=== PATIENT | male | born 1945 | race Caucasian/White ===

== ENCOUNTER 2019-04-12 20:45 | Observation (INO) | payer OTHER, MEDICARE ==
[2019-04-12] MEDS ORDERED: NS 500 ML IV ONE (21:42)
[2019-04-12 21:53] LABS: PLATELET COUNT 215 10^3/uL (150-400)
[2019-04-12 22:15] LABS: INR 1.03 (0.83-1.16); PROTIME(PATIENT) 13.1 SEC (12.0-15.0)
[2019-04-12] MEDS ORDERED: PANTOPRAZOLE SODIUM 40 MG VIAL IVP ONE (22:52)
--- NOTE | 2019-04-12 22:58 | EDPHY ---
H & P Time Seen by Provider: 04/12/19 21:44 HPI/ROS: HPI Rectal bleeding. 74-year-old male by private vehicle with his . This patient reports that he had some blood that he noticed on the toilet paper earlier today when he had a bowel movement. He when out to dinner. Had no issues with dinner but felt the urge to defecate when he got home. When he did this he had very dark stool of mixed with a significant amount of blood in the toilet. He denies feeling lightheaded. He has no prior history of rectal bleeding. He is not on any anticoagulant or antiplatelet agents. No abdominal pain. No nausea or vomiting. No rectal pain. ROS: Constitutional: No fever, no chills. No weakness. Eyes: No discharge. No changes in vision. ENT: No sore throat. No nasal congestion or rhinorrhea. Respiratory: No cough. No shortness of breath. Cardiac: No chest pain, no palpitations. Gastrointestinal: No abdominal pain, no vomiting, no diarrhea. As above. Genitourinary: No hematuria. No dysuria or increased frequency with urination. Musculoskeletal: No back pain. No neck pain. No myalgias or arthralgias. Skin: No rashes. Neurological: No headache. No focal weakness or altered sensation. Past medical history: Trigeminal neuralgia, GERD, BPH. Social history: Nonsmoker. No alcohol. Here with his . Physical Exam: General Appearance: Alert, no distress. This patient is responding to questions appropriately and in full sentences. This patient appears well- hydrated and well-nourished. Eyes: Pupils equal and round no pallor or injection. No lid edema, erythema or injection. Respiratory: There are no retractions, lungs are clear to auscultation with good air movement bilaterally. Cardiovascular: Regular rate and rhythm. No murmur. Gastrointestinal: Abdomen is soft, distended but this is his normal body habitus, nontender on palpation throughout, no masses, bowel sounds normal. No focal tenderness at McBurney's point. No Hughes sign. Rectal exam: Small external hemorrhoid. Gross blood mixed with a melenic stool. Neurological: Motor sensory function is grossly intact. Cranial nerves are normal. Gait is normal. Skin: Warm and dry, no rashes. Musculoskeletal: Neck is supple and nontender. Extremities are symmetrical. All joints range without pain or impingement. Psychiatric: No agitation. No depression. Database: EKG: Imaging: Procedures: Emergency department course: Triage vital signs reviewed. He is moderately hypertensive. Vital signs are otherwise normal. IV placed x2. He was placed on a monitor. He was started on IV normal saline with 500 cc to 1 L to be given over the next hour. 10:55 p.m., patient re-evaluated, resting comfortably at this time. I discussed the results of his blood work with him and his . Explained the differential diagnosis of rectal bleeding. Explained that we would admit him to the hospitalist service for further evaluation and Gastroenterology consultation. He was started on 80 mg of IV Protonix. Hospitalist paged for admission. 11:15 p.m., care was discussed with on-call hospitalist. Patient accepted for admission to the hospitalist service. Gastroenterology consultation deferred to hospitalist service. Patient admitted to the hospitalist service in stable condition. Differential Diagnosis: The differential diagnosis on this patient includes but is not limited to internal hemorrhoids, colonic polyps, diverticulosis, upper gastrointestinal bleeding source. This represents a partial list of diagnoses considered. These considerations are based on history, physical exam, past history, reassessment and diagnostic testing. Smoking Status: Never smoked Constitutional: Initial Vital Signs Temperature (C) 37.1 C 04/12/19 20:46 Heart Rate 72 04/12/19 20:46 Respiratory Rate 17 04/12/19 20:46 Blood Pressure 168/100 H 04/12/19 20:46 O2 Sat (%) 96 04/12/19 20:46 O2 Delivery Mode Room Air Allergies/Adverse Reactions: poliomyelitis vaccine,killed [Poliomyelitis Vac,Killed] Allergy (Unknown, Verified 04/12/19 20:47) Sulfa (Sulfonamide Antibiotics) [Sulfa(Sulfonamide Antibiotics)] Allergy ( Unknown, Verified 04/12/19 20:47) poliomyelitis vaccine, live oral [poliomyelitis vaccine,live] Allergy (Verified 04/12/19 20:47) mendelamine Allergy (Unknown, Uncoded 04/12/19 20:47) Home Medications: Medication Instructions Recorded Flomax 11/14/12 Lipitor 11/14/12 Lisinopril/Hctz 11/14/12 Prevacid 11/14/12 Fluticasone Hfa 110 Mcg [Flovent 2 puffs IH BID 07/13/13 Hfa] Medical Decision Making - Data Points Laboratory Results: Laboratory Results 04/12/19 21:15 04/12/19 21:15 04/12/19 04/12/19 04/12/19 22:47 21:15 21:15 WBC RBC Hgb Hct MCV MCH MCHC RDW Plt Count MPV Neut % (Auto) Lymph % (Auto) [place] % (Auto) Eos % (Auto) Baso % (Auto) Nucleat RBC Rel Count Absolute Neuts (auto) Absolute Lymphs (auto) Absolute Monos (auto) Absolute Eos (auto) Absolute Basos (auto) Absolute Nucleated RBC Immature Gran % Immature Gran # PT INR APTT Sodium 138 mEq/L mEq/L (135-145) Potassium 4.2 mEq/L mEq/L (3.5-5.2) Chloride 104 mEq/L mEq/L (97-110) Carbon Dioxide 26 mEq/l mEq/l (22-31) Anion Gap 8 mEq/L mEq/L (6-14) BUN 9 mg/dL mg/dL (7-23) Creatinine 0.8 mg/dL mg/dL (0.7-1.3) Estimated GFR > 60 Glucose 94 mg/dL mg/dL (70-100) Calcium 9.7 mg/dL mg/dL (8.5-10.4) Total Bilirubin 0.4 mg/dL mg/dL (0.1-1.4) Conjugated Bilirubin 0.1 mg/dL mg/dL (0.0-0.5) Unconjugated Bilirubin 0.3 mg/dL mg/dL (0.0-1.1) AST 30 IU/L IU/L (17-59) ALT 31 IU/L IU/L (21-72) Alkaline Phosphatase 68 IU/L IU/L (38-126) Total Protein 6.5 g/dL g/dL (6.3-8.2) Albumin 4.0 g/dL g/dL (3.5-5.0) Stool Occult Bld Scrn POSITIVE H (NEGATIVE) Patient ABO/Rh O POSITIVE Antibody Screen NEGATIVE 04/12/19 04/12/19 21:15 21:15 WBC 8.03 10^3/uL 10^3/uL (3.80-9.50) RBC 4.91 10^6/uL 10^6/uL (4.40-6.38) Hgb 15.4 g/dL g/dL (13.7-17.5) Hct 46.7 % % (40.0-51.0) MCV 95.1 fL fL (81.5-99.8) MCH 31.4 pg pg (27.9-34.1) MCHC 33.0 g/dL g/dL (32.4-36.7) RDW 13.6 % % (11.5-15.2) Plt Count 215 10^3/uL 10^3/uL (150-400) MPV 11.7 fL fL (8.7-11.7) Neut % (Auto) 55.6 % % (39.3-74.2) Lymph % (Auto) 32.4 % % (15.0-45.0) [place] % (Auto) 7.3 % % (4.5-13.0) Eos % (Auto) 4.1 % % (0.6-7.6) Baso % (Auto) 0.4 % % (0.3-1.7) Nucleat RBC Rel Count 0.0 % % (0.0-0.2) Absolute Neuts (auto) 4.46 10^3/uL 10^3/uL (1.70-6.50) Absolute Lymphs (auto) 2.60 10^3/uL 10^3/uL (1.00-3.00) Absolute Monos (auto) 0.59 10^3/uL 10^3/uL (0.30-0.80) Absolute Eos (auto) 0.33 10^3/uL 10^3/uL (0.03-0.40) Absolute Basos (auto) 0.03 10^3/uL 10^3/uL (0.02-0.10) Absolute Nucleated RBC 0.00 10^3/uL 10^3/uL (0-0.01) Immature Gran % 0.2 % % (0.0-1.1) Immature Gran # 0.02 10^3/uL 10^3/uL (0.00-0.10) PT 13.1 SEC SEC (12.0-15.0) INR 1.03 (0.83-1.16) APTT 31.6 SEC SEC (23.0-38.0) Sodium Potassium Chloride Carbon Dioxide Anion Gap BUN Creatinine Estimated GFR Glucose Calcium Total Bilirubin Conjugated Bilirubin Unconjugated Bilirubin AST ALT Alkaline Phosphatase Total Protein Albumin Stool Occult Bld Scrn Patient ABO/Rh Antibody Screen Medications Given: Discontinued Medications Sodium Chloride (Ns) 500 mls @ 0 mls/hr IV EDNOW ONE; Wide Open PRN Reason: Protocol Stop: 04/12/19 21:43 Last Admin: 04/12/19 22:06 Dose: 500 mls Pantoprazole Sodium (Protonix) 80 mg IVP EDNOW ONE Stop: 04/12/19 22:53 Last Admin: 04/12/19 23:01 Dose: 80 mg Departure - Departure Disposition: [facility] Inpatient Acute Clinical Impression: Rectal bleeding Referrals: Unknown,Unknown [Primary Care Provider] - As per Instructions
[2019-04-13] MEDS ORDERED: ONDANSETRON 4 MG/2 ML VIAL IVP PRN (02:01)
[2019-04-13] MEDS ORDERED: ONDANSETRON DISINTEGRATING 4 MG TAB PO PRN (02:01)
[2019-04-13] MEDS ORDERED: ACETAMINOPHEN 325 MG TAB PO PRN (02:01)
[2019-04-13] MEDS ORDERED: NS 1,000 ML IV SCH (02:15)
[2019-04-13] MEDS ORDERED: 1/2 NS 1,000 ML IV SCH (04:30)
[2019-04-13] MEDS ORDERED: PANTOPRAZOLE SODIUM 40 MG VIAL IVP SCH (04:52)
[2019-04-13] MEDS: PANTOPRAZOLE SODIUM 40 MG VIAL IVP SCH ×4 (06:01→23:01)
--- NOTE | 2019-04-13 06:15 | GHP ---
[f rep st] HISTORY AND PHYSICAL DATE OF ADMISSION: 04/12/2019 SOURCE: Patient provides history, appears reliable. EMR was reviewed and case discussed with ED pro vider. CHIEF COMPLAINT: Rectal bleeding. HISTORY OF PRESENT ILLNESS: This is a very pleasant 74-year-old gentleman with a past medical histor y significant for BPH, GERD, colonic polyps, HTN, HLD, esophageal spasms, trigeminal neuralgia, who p resents to the emergency department today with complaints of melenic stool and bright red blood per r ectum. The patient was in his usual state of health. He did notice earlier in the day he had some b right red blood when he wiped with toilet paper. The patient was feeling otherwise well and so had d inner with his family. He subsequently had urgency to go to the restroom and had a larger melenic st ool with bright red blood in addition. Patient denies any abdominal pain. No distention. No fevers , chills. No nausea or vomiting. Patient does take aspirin 81 mg on a daily basis. Additionally, p atient did develop a headache earlier and did take 400 mg dose of ibuprofen yesterday, but does not t ric this on a regular or scheduled basis. Patient is followed by Dr. Damon. He underwent a colonosco py 2 years ago. Patient reports that he had a polyp as well as was diagnosed with diverticulosis. REVIEW OF SYSTEMS: Ten systems reviewed, negative except as noted above. ALLERGIES: Including polio vaccine, sulfa, methenamine. HOME MEDICATIONS: Not yet reconciled. See EMR, but what is available: Prevacid, lisinopril/HCTZ, L ipitor, Flovent HFA, and Flomax. PAST MEDICAL HISTORY: Significant for BPH, GERD, colonic polyps, HTN, HLD, esophageal spasms, trigem inal neuralgia. PAST SURGICAL HISTORY: Significant for a colonoscopy, EGD, cataract extraction with lens placement, pilonidal cyst removal, ORIF of the tibial plateau following horse fall injury. FAMILY HISTORY: Significant for father with history of colon cancer. SOCIAL HISTORY: Patient is . He quit smoking at age 31. Does not drink or utilize any illic it drugs. COR STATUS: DNR/DNI. PHYSICAL EXAMINATION: VITAL SIGNS: Upon arrival to the emergency department, blood pressure 168/100 , heart rate is 72, respiratory rate 17, O2 saturation 96% on room air, temperature 37.1. Current vi tals available, blood pressure 121/64, heart rate 66, respiratory rate 16, O2 saturation 93% on room air, temperature 36.6. GENERAL: No acute distress. Melanie adult gentleman is lying quietly in be d asleep, wakes easily to name. HEAD: Normocephalic, atraumatic. EYES: Extraocular muscles grossl y intact. Pupils equal, round, react to light bilaterally and symmetric. Lens reflex appreciated bi laterally. No scleral icterus or conjunctival injection. ENT: Mucous membranes appear moist. No o ropharyngeal erythema or exudates. Dentition intact. NECK: Supple. Trachea midline. CV: Regular rate and rhythm. No murmurs, rubs, or gallops appreciated. RESPIRATORY: Lungs clear to auscultati on bilaterally. No wheezes, rales, or rhonchi. Unlabored breathing. ABDOMEN: Positive bowel sound s. Soft, nontender to palpation. No rebound, guarding, or masses appreciated. Obese abdomen. : No suprapubic tenderness to palpation. No Cagle catheter in place. MUSCULOSKELETAL: Patient moves all extremities while lying in bed. Normal strength. NEURO: Grossly nonfocal. No facial drooping . Moves all extremities. PSYCH: Thought process, content and questions are all appropriate. Patie nt is pleasant and cooperative. LABORATORY STUDIES: WBCs 8.03, H and H is 15.4 and 46.7, MCV of 95.1, platelet count is 215, no band s. PT 13.1, INR is 1.03, PTT is 31.6. Sodium is 138, potassium 4.2, chloride 104, CO2 is 26, anion gap 8, BUN 9, creatinine 0.8, GFR greate r than 60, glucose 94, calcium 9.7. Total bilirubin 0.4, ALT is 31, AST is 30, alkaline phosphatase 68, total protein 6.8, albumin 4.0. Stool occult blood is positive per ED provider. On rectal exam, glove was significant for melenic stool in addition to bright red blood. ASSESSMENT AND PLAN: Melanie 74-year-old gentleman with past medical history significant for HTN, H LD, GERD, BPH, colonic polyps, diverticulosis, esophageal spasm, who presents to the emergency depart ment today with complaints of melenic stool and bright red blood per rectum. 1. Gastrointestinal bleed, potentially all related to diverticulosis. Patient is hemodynamically st able at this point. He has not had any additional bloody bowel movements. He is on a daily aspirin and to take additional dose of NSAID. We will hold these at this time. Patient has been started on Protonix scheduled therapy. Plan to additionally discuss with GI in the morning as per the hospital team. 2. Chronic medical issues. 3. BPH. Continue Flomax. 4. Gastroesophageal reflux. Continue PPI as noted above. 5. Benign essential hypertension. Blood pressure is currently acceptable. Will keep patient n.p.o. Resume his home medications at discharge. 6. Hyperlipidemia. Continue Lipitor at discharge. 7. History of esophageal spasms. Patient has been taking fluticasone p.o. He has not been having a ny additional issues. 8. Fluid, electrolyte, nutrition. IV fluids overnight while patient is n.p.o. Patient is adamant t hat he have something to drink. He is concerned for dehydration. Discussed use of sparing ice chips . He is amenable to this compromise. Electrolytes adequate. Replace if needed. 9. Prophylaxis. SCDs. Holding anticoagulation in setting of bleeding. 10. Cor status is DNR/DNI. Patient reports he has advanced directives and his is aware of his wishes. 11. Disposition: Patient admitted to observation status on the med/surg floor pending serial H and H and additional discussion with GI. /[id number]/MODL
[2019-04-13] MEDS ORDERED: FLUTICASONE HFA 110 MCG MDI IH PRN (11:11)
--- NOTE | 2019-04-13 11:18 | SOAPPROG ---
KATHYA Progress Note Assessment/Plan: Assessment: Plan: 04/13/19 11:17 GI note Case d/w hospitalist. Will plan on colonoscopy tomorrow am. Objective: Vital Signs Temp Pulse Resp BP Pulse Ox 36.6 C 64 16 120/63 94 04/13/19 08:24 04/13/19 08:24 04/13/19 08:24 04/13/19 08:24 04/13/19 08:24 Laboratory Results 04/13/19 04:38 04/12/19 04/13/19 04/14/19 05:59 05:59 05:59 Intake Total 550 Balance 550 PT 13.1 SEC (12.0-15.0) 04/12/19 21:15 INR 1.03 (0.83-1.16) 04/12/19 21:15 ICD10 Worksheet Patient Problems: Problems Problem Status Onset Rectal bleeding Acute
--- NOTE | 2019-04-13 11:21 | ASMTCMCOM ---
CM Note CM Note Notes: Reviewed chart and spoke with COMMERCIAL INTERN, pt came to [place] from [place] for a [facility] service that will take place Saturday. He was admitted for rectal bleeding and will have a colonoscopy Saturday am. He is retired and lives at home with his . Plan is for pt to dc after so he can go to the [facility]. DC Plan: Independent Date Signed: 04/13/2019 11:21 AM Electronically Signed By:Cathie Swain RN
--- NOTE | 2019-04-13 13:22 | HOSPPROG ---
Hospitalist Progress Note Assessment/Plan: 74y male with c/o bloody stool. #BRBPR d/w Dr Damon colon in am no stool since admission #Hx family colon CA #Dispo has a memorial service at 1400 tomorrow hoping to go Subjective: Feeling ok. Waiting for GI. No pain Objective: Vital Signs Temp Pulse Resp BP Pulse Ox 36.6 C 60 16 135/73 H 93 04/13/19 11:25 04/13/19 11:25 04/13/19 11:25 04/13/19 11:25 04/13/19 11:25 Laboratory Results 04/13/19 04:38 04/12/19 04/13/19 04/14/19 05:59 05:59 05:59 Intake Total 550 Balance 550 PT 13.1 SEC (12.0-15.0) 04/12/19 21:15 INR 1.03 (0.83-1.16) 04/12/19 21:15 - Physical Exam Constitutional: no apparent distress, appears nourished Eyes: PERRL, anicteric sclera Ears, Nose, Mouth, Throat: moist mucous membranes, hearing normal Cardiovascular: No JVD, No edema Respiratory: no respiratory distress, no rales or rhonchi Gastrointestinal: No tenderness, No ascites Skin: warm, normal color Musculoskeletal: full muscle strength, no muscle tenderness Neurologic: AAOx3 Psychiatric: interacting appropriately, not anxious ICD10 Worksheet Patient Problems: Problems Problem Status Onset Rectal bleeding Acute
[2019-04-13] MEDS ORDERED: PEG 3350/NA SULF,BICARB,CL/KCL (GAVILYTE-G) 4000 ML BTL PO ONE (18:00)
[2019-04-14] MEDS: PANTOPRAZOLE SODIUM 40 MG VIAL IVP SCH (05:02)
[2019-04-14] MEDS ORDERED: LR 1,000 ML IV ONE (08:15)
[2019-04-14] MEDS ORDERED: PROPOFOL/EMULSION 500 MG/50 ML BOTTLE IV ONE (08:17)
--- NOTE | 2019-04-14 08:29 | HOSPPROG ---
Hospitalist Progress Note Assessment/Plan: Patient is a 74-year-old male who presented the emergency room with complaints of melanotic stool and bright red blood per rectum. 1st encounter chart reviewed. * gastrointestinal bleed -s/p colonoscopy and EGD -no source founded -occult blood screen is positive -on PPI therapy -has a history of diverticulosis as well as colonic polyps * BPH -Flomax * GERD -PPI * hypertension * hyperlipidemia -on statin therapy * history of esophageal spasms -fluticasone p.o.-dose has been increased * patient has a [facility] service today at 2:00 p.m., dc home w his eife Subjective: Yessenia feels well,anxious to be dc Objective: Vital Signs Temp Pulse Resp BP Pulse Ox 36.6 C 60 16 152/87 H 96 04/14/19 08:18 04/14/19 08:18 04/14/19 08:18 04/14/19 08:18 04/14/19 08:18 Laboratory Results 04/13/19 04:38 04/13/19 04/14/19 04/15/19 05:59 05:59 05:59 Intake Total 550 700 Balance 550 700 PT 13.1 SEC (12.0-15.0) 04/12/19 21:15 INR 1.03 (0.83-1.16) 04/12/19 21:15 - Physical Exam Constitutional: no apparent distress, appears nourished, not in pain Eyes: PERRL Ears, Nose, Mouth, Throat: hearing normal Cardiovascular: regular rate and rhythym Respiratory: no respiratory distress Skin: warm Neurologic: AAOx3 Psychiatric: interacting appropriately ICD10 Worksheet Patient Problems: Problems Problem Status Onset Rectal bleeding Acute
[2019-04-14] MEDS ORDERED: fentaNYL 100 MCG/2 ML INJ ONE (08:32)
[2019-04-14] MEDS ORDERED: HYDROCHLOROTHIAZIDE 12.5 MG CAP PO SCH (09:00)
--- NOTE | 2019-04-14 09:28 | GIREPORT ---
[facility] Surgical Services - Endoscopy Department Patient Name: Yessenia Pleitez Procedure Date: 04/14/2019 8:35 AM Patient Type: Inpatient Attending MD/ ER Physician: Lexx Damon MD Procedure: Upper GI endoscopy Indications: Dysphagia, Hematochezia Patient Profile: 74 year old male presents for evaluation of hematochezia/dysphagia. Providers: Lexx Damon MD Medicines: Monitored Anesthesia Care Complications: No immediate complications. Estimated blood loss: None. Description of Procedure: After obtaining informed consent, the endoscope was passed under direct vision. Throughout the procedure, the patient's blood pressure, pulse, and oxygen saturations were monitored continuously. The was introduced thro ugh the mouth, and advanced to the second part of duodenum. The upper GI endoscopy was accomplished without difficulty. The patient tolerated th e procedure well. Findings: Mucosal changes including ringed esophagus were found in the middle thi rd of the esophagus. This is consistent with his known eosinophilic esophagit is. A small hiatal hernia was present. The examined duodenum was normal. Estimated Blood Loss: Estimated blood loss: none. Post Op Diagnosis: - Esophageal mucosal changes consistent with eosinophilic esophagitis. - Small hiatal hernia. - Normal examined duodenum. - No specimens collected. - Etiology? No cause of bleed noted. Recommend fluticasone 220mcg 2 puf fs swallowed BID. Recommendation: - Perform a colonoscopy today. - Recommend to continue PPI therapy. - Recommend fluticasone inhaler 220mcg 2 puffs swallowed BID. - Thank you for allowing me to participate in the care of your patient. Attending Participation: I personally performed the entire procedure. Lexx Damon MD Lexx Damon MD 04/14/2019 9:27:52 AM This report has been signed electronicallyLexx Damon MD Number of Addenda: 0 Note Initiated On: 04/14/2019 8:35 AM [email or web address]
--- NOTE | 2019-04-14 09:38 | GIREPORT ---
[facility] Surgical Services - Endoscopy Department Patient Name: Yessenia Pleitez Procedure Date: 04/14/2019 8:42 AM Patient Type: Inpatient Attending MD/ ER Physician: Lexx Damon MD Procedure: Colonoscopy Indications: Hematochezia Patient Profile: 74 year old male presents for hematochezia. Providers: Lexx Damon MD Medicines: Monitored Anesthesia Care Complications: No immediate complications. Estimated blood loss: None. Description of Procedure: After obtaining informed consent, the scope was passed under direct vis ion. Throughout the procedure, the patient's blood pressure, pulse, and oxyg en saturations were monitored continuously. The Colonoscope with irrigatio n channel was introduced through the anus and advanced to the terminal il eum. The colonoscopy was performed without difficulty. The patient tolerated the procedure well. The quality of the bowel preparation was good. The term inal ileum, ileocecal valve, appendiceal orifice, and rectum were photograph ed. Findings: The perianal and digital rectal examinations were normal. Pertinent negatives include no palpable rectal lesions. Multiple small and large-mouthed diverticula were found in the sigmoid colon, descending colon, transverse colon and ascending colon. Estimated Blood Loss: Estimated blood loss: none. Post Op Diagnosis: - Diverticulosis in the sigmoid colon, in the descending colon, in the transverse colon and in the ascending colon. - No specimens collected. - Etiology? No source of bleed noted. Diverticular? Recommendation: - Return patient to hospital [facility] for ongoing care. - Advance diet as tolerated. - Continue present medications. - OK to discharge home from GI perspective. - Thank you for allowing me to participate in the care of your patient. Attending Participation: I personally performed the entire procedure. Lexx Damon MD Lexx Damon MD 04/14/2019 9:38:32 AM This report has been signed electronicallyLexx Damon MD Number of Addenda: 0 Note Initiated On: 04/14/2019 8:42 AM Total Procedure Duration Time 0 hours 27 minutes 23 seconds [email or web address]
--- NOTE | 2019-04-14 09:46 | SOAPPROG ---
SOAP Progress Note Assessment/Plan: Assessment: Plan: 04/13/19 11:17 GI note Case d/w hospitalist. Will plan on colonoscopy tomorrow am. 04/14/19 09:43 S/p EGD and colonoscopy. No source found. Ok to discharge home today. Needs fluticasone inhaler on discharge- 220 mcg. 2 puffs swallowed BID. GI will sign off. Please call if needed. Objective: Vital Signs Temp Pulse Resp BP Pulse Ox 36.6 C 60 16 152/87 H 96 04/14/19 08:18 04/14/19 08:18 04/14/19 08:18 04/14/19 08:18 04/14/19 08:18 Laboratory Results 04/13/19 04:38 04/13/19 04/14/19 04/15/19 05:59 05:59 05:59 Intake Total 550 700 Balance 550 700 PT 13.1 SEC (12.0-15.0) 04/12/19 21:15 INR 1.03 (0.83-1.16) 04/12/19 21:15 ICD10 Worksheet Patient Problems: Problems Problem Status Onset Rectal bleeding Acute
[2019-04-14 10:10] VITALS: BP 170/82
--- NOTE | 2019-04-14 10:39 | GCON ---
[f rep st] CONSULTATION DATE OF CONSULTATION: 04/14/2019 CONSULTING PHYSICIAN: Tigist Frost NP. REASON FOR CONSULTATION: Hematochezia. CHIEF COMPLAINT: Blood in stools. HISTORY OF PRESENT ILLNESS: Mr. Pleitez is a 74-year-old male with a history of eosinophilic esophagitis, hypertension, and hyperlipidemia, who presents to [facility] with complaints of blood in his stool. The patient states he has had several bowel movements which were bright red, as well as black stools. He did have some urgency. He denies any abdominal pain, odynophagia, nausea, or vomiting. He does take a daily aspirin. He denies any exacerbating or alleviating factor to his symptoms. He did undergo a surveillance colonoscopy 2 years ago in [place], and he felt a polyp was removed. Yessenia has a known history of eosinophilic esophagitis, and he currently complains of dysphagia approximately 3 times a week to solid foods. I am being asked by Amilcar Frost NP, to evaluate Yessenia in consultation regarding his blood in his stools. PAST MEDICAL HISTORY: Eosinophilic esophagitis, hypertension, hyperlipidemia, BPH, trigeminal neuralgia. PAST SURGICAL HISTORY: Cataract, ORIF of tibial plateau, CyberKnife therapy of trigeminal neuralgia. MEDICATIONS: 1. Prevacid. 2. Lisinopril/hydrochlorothiazide. 3. Lipitor. 4. Flomax. ALLERGIES: Polio vaccine, sulfa, methenamine. FAMILY HISTORY: Father: Colon cancer. SOCIAL HISTORY: Lives in [place]. Former smoker. No significant recent alcohol. REVIEW OF SYSTEMS: A 14-point comprehensive review of systems was asked. Pertinent positives and negatives per HPI. PHYSICAL EXAMINATION: VITAL SIGNS: Blood pressure 152/87, temperature 36.6, pulse 60, respirations 16. GENERAL: Awake, alert, oriented x3, in no distress HEENT: Anicteric. Moist mucosa. NECK: No JVD. CARDIOVASCULAR: Regular rate and rhythm, positive S1, S2. No murmurs or gallops appreciated. LUNGS: Clear to auscultation bilaterally. No wheezes, rales, or rhonchi. ABDOMEN: Soft, nontender, nondistended. Positive bowel sounds. No guarding or rebound. EXTREMITIES: No clubbing, cyanosis, or edema. NEUROLOGIC: Cranial nerves 2 through 12 grossly intact. PSYCH: Normal affect. SKIN: No rash. MUSCULOSKELETAL: No obvious joint effusions. LYMPH: No lymphadenopathy. LABORATORY DATA: WBC is 8.03, hemoglobin 13.4, hematocrit 40.4, platelets 215. INR 1.03. Sodium 138, potassium 4.2, chloride 104, bicarb 26, BUN 9, creatinine 0.8. AST 30, ALT 31, total bilirubin 0.4, alkaline phosphatase 68. ASSESSMENT AND PLAN: 1. Blood in stools- bright red blood and darker stools. Does have complaints of dysphagia as well. At this time, recommend to proceed with upper endoscopy and colonoscopy to delineate the cause of his symptoms. The risks, benefits, and alternatives of the procedure were discussed in great detail with the patient. The risks of infection, bleeding, perforation, and sedation were discussed. All questions answered and informed consent was obtained. 2. Dysphagia- known history of eosinophilic esophagitis. Recommend EGD with possible dilation if there is a dominant stricture. Would recommend fluticasone swallowed steroids. 3. Hypertension. 4. Hyperlipidemia. 5. Benign prostatic hypertrophy. Thank you very much for this consultation. /[id number]/MODL MTDD
[2019-04-14] MEDS ORDERED: TAMSULOSIN HCL 0.4 MG CAP PO SCH (10:45)
--- NOTE | 2019-04-14 11:35 | GDS ---
[f rep st] DISCHARGE SUMMARY DISCHARGE DIAGNOSES: 1. Gastrointestinal bleed. 2. Benign prostatic hypertrophy. 3. Gastroesophageal reflux disease. 4. Hypertension. 5. Hyperlipidemia. 6. History of esophageal spasms. CONSULTATION: Dr. Damon. HISTORY OF PRESENT ILLNESS: Briefly, the patient is a 74-year-old male who presented the emergency r oom with complaints of melenic stool and bright red blood per rectum. He had a colonoscopy and EGD. No source was found. Because of his history of esophageal spasms, his dose of fluticasone was incre ased. Today, he will be discharged home with recommendations to hold aspirin for week. HOSPITAL COURSE: 1. GI bleed. No clear-cut source was identified. He is status post colonoscopy and EGD. He has a history of diverticulosis as well as colonic polyps. 2. BPH, on Flomax. 3. GERD on PPI. 4. Hypertension. Blood pressure is a bit elevated this morning. 5. Hyperlipidemia. Resume statin therapy. 6. History of esophageal spasms. His fluticasone dose has been increased. DISCHARGE CONDITION: Stable. Blood pressure is 170/82, heart rate 56, respiratory rate of 18, O2 sats on room air 96%, temperature 36.7 Celsius. MEDICATIONS AT DISCHARGE: Please see the EMR. DISCHARGE INSTRUCTIONS: 1. To follow up with Dr. Damon. 2. To stop using NSAIDs. 3. Take Tylenol as needed for pain. 4. If he has any further bleeding per rectum, return to the ER. /[id number]/MODL
== END 2019-04-14 11:11 | disposition home or self-care (01) ==
LOC: INTOOBSV 23:26 → F3E 04-13 01:12
PROVIDERS: ADMIT Family Medicine; ATTEND Internal Medicine
PROC: 0DJ08ZZ Inspection of Upper Intestinal Tract, Via Natural or Artificial Opening Endoscopic (ICD-10-PCS; principal; 2019-04-12)
PROC: 0DJD8ZZ Inspection of Lower Intestinal Tract, Via Natural or Artificial Opening Endoscopic (ICD-10-PCS; principal; 2019-04-12)
DX: K92.2 Gastrointestinal hemorrhage, unspecified (principal); K57.30 Diverticulosis of large intestine without perforation or abscess without bleeding; N40.0 Benign prostatic hyperplasia without lower urinary tract symptoms; K21.9 Gastro-esophageal reflux disease without esophagitis; I10 Essential (primary) hypertension; E78.5 Hyperlipidemia, unspecified; G50.0 Trigeminal neuralgia; E86.9 Volume depletion, unspecified; Z87.19 Personal history of other diseases of the digestive system; Z86.010 Personal history of colon polyps
CPT/HCPCS: 43235; 45378; 96361; 96374; 96376; 99285; G0378; J2704; J3010